=== PATIENT | male | born 1980 | race American Indian/Alaskan Native ===

== ENCOUNTER 2017-09-16 18:21 | Emergency (ER) | payer SELFPAY ==
[2017-09-16 18:42] VITALS: BP 116/80
--- NOTE | 2017-09-16 21:23 | Emergency Department Report ---
ED Eye Problem HPI - General Chief complaint: Eye Problems Stated complaint: LEFT EYE PAIN Time Seen by Provider: 09/16/17 21:21 Source: patient Mode of arrival: Ambulatory Limitations: No Limitations - History of Present Illness Initial comments: This is a 36-year-old male nontoxic, well nourished in appearance, no acute signs of distress presents to the ED with c/o of left eye pain. Patient stated that this morning around 5 AM he hit his eye with his left thumb. Patient denied decreased vision, fever, chills, headache, stiff neck, nausea, vomiting, chest pain or shortness of breath. Patient denies any eye crusting. Denies any allergies or significant past medical history. chief complaint: eye pain -: This morning Onset Description: sudden Location: left eye Place: home If Injury: none Eye Symptoms: burning, redness, pain Severity: mild Severity scale (0 -10): 8 If Pain, Quality: burning, aching Consistency: constant Associated Symptoms: none. denies: headache, neck pain, nausea/vomiting, cough , rhinorrhea, fever, shortness of breath Treatments Prior to Arrival: none - Related Data Previous Rx's Medication Instructions Recorded Last Taken Type traMADol [Ultram] 50 mg PO Q4HR PRN #15 tablet 08/15/13 Unknown Rx Ciprofloxacin 0.3% (Nf) 2 drops OS TID #1 drops 09/16/17 Unknown Rx [Ciprofloxacin OPTH] Cyclopentolate HCl [Cyclogyl 1%] 1 drop OP BID #1 drops 09/16/17 Unknown Rx Allergies Allergy/AdvReac Type Severity Reaction Status Date / Time No Known Allergies Allergy Verified 08/15/13 06:30 ED Review of Systems ROS: Stated complaint: LEFT EYE PAIN Other details as noted in HPI Constitutional: denies: chills, fever Eyes: eye pain. denies: eye discharge, vision change ENT: denies: ear pain, throat pain Respiratory: denies: cough, shortness of breath, wheezing Cardiovascular: denies: chest pain, palpitations Endocrine: no symptoms reported Gastrointestinal: denies: abdominal pain, nausea, diarrhea Genitourinary: denies: urgency, dysuria Musculoskeletal: denies: back pain, joint swelling, arthralgia Skin: denies: rash, lesions Neurological: denies: headache, weakness, paresthesias Psychiatric: denies: anxiety, depression Hematological/Lymphatic: denies: easy bleeding, easy bruising ED Past Medical Hx - Past Medical History Previous Medical History?: No - Surgical History Past Surgical History?: No - Social History Smoking Status: Never Smoker Substance Use Type: None - Medications Home Medications: Home Medications Medication Instructions Recorded Confirmed Last Taken Type traMADol [Ultram] 50 mg PO Q4HR PRN #15 tablet 08/15/13 Unknown Rx Ciprofloxacin 0.3% (Nf) 2 drops OS TID #1 drops 09/16/17 Unknown Rx [Ciprofloxacin OPTH] Cyclopentolate HCl [Cyclogyl 1%] 1 drop OP BID #1 drops 09/16/17 Unknown Rx ED Physical Exam - General Limitations: No Limitations General appearance: alert, in no apparent distress - Head Head exam: Present: atraumatic, normocephalic - Eye Eye exam: Present: normal appearance, PERRL, EOMI. Absent: scleral icterus, conjunctival injection, nystagmus, periorbital swelling, periorbital tenderness Pupils: Present: normal accommodation - Expanded Eye Exam Expanded Eyelids: Normal Inspection: Left Pupils: Regular, Round: Left, Reactive: Left Sclera/Conjunctival: Normal Inspection: Left Anterior chamber: Normal Inspection: Left Visual acuity (R) = 20/: 70 Visual acuity (L) = 20/: 50 With correction: No IOP (L) in mmH IOP measured with: Tonopen - ENT ENT exam: Present: normal exam, normal orophraynx, mucous membranes moist - Neck Neck exam: Present: normal inspection, full ROM - Respiratory Respiratory exam: Present: normal lung sounds bilaterally. Absent: respiratory distress, wheezes, rales, rhonchi, stridor - Cardiovascular Cardiovascular Exam: Present: regular rate, normal rhythm. Absent: systolic murmur, diastolic murmur, rubs, gallop - GI/Abdominal GI/Abdominal exam: Present: soft, normal bowel sounds - Rectal Rectal exam: Present: deferred - Extremities Exam Extremities exam: Present: normal inspection - Back Exam Back exam: Present: normal inspection - Neurological Exam Neurological exam: Present: alert, oriented X3, CN II-XII intact, normal gait - Psychiatric Psychiatric exam: Present: normal affect, normal mood - Skin Skin exam: Present: warm, dry, intact, normal color. Absent: rash - Other Other exam information: Under Maciel lamp, I used fluorescein and tetracaine to examine cornea for corneal abrasion or foreign body. There is positive corneal abrasion about 0.5 cm. No foreign body noted. ED Course Vital Signs 09/16/17 18:38 Temperature 98.6 F Pulse Rate 70 Respiratory 18 Rate Blood Pressure 116/80 O2 Sat by Pulse 98 Oximetry - Reevaluation(s) Reevaluation #1: 09/16/17 21:48 Patient is speaking in full sentences with no signs of distress noted. Critical care attestation.: If time is entered above; I have spent that time in minutes in the direct care of this critically ill patient, excluding procedure time. ED Disposition Clinical Impression: Corneal abrasion Qualifiers: Encounter type: initial encounter Laterality: left Qualified Code(s): S05.02XA - Injury of conjunctiva and corneal abrasion without foreign body, left eye, initial encounter Disposition: - TO HOME OR SELFCARE Is pt being admited?: No Does the pt Need Aspirin: No Condition: Stable Instructions: Corneal Abrasion (ED) Additional Instructions: Follow-up with a targeteer doctor in 3-5 days or if symptoms worsen and continue return to emergency room as soon as possible. Prescriptions: Ciprofloxacin 0.3% (Nf) [Ciprofloxacin OPTH] 2 drops OS TID #1 drops Cyclopentolate HCl [Cyclogyl 1%] 1 drop OP BID #1 drops Referrals: PRIMARY CARE, [Referring] - 3-5 Days PHILLY JO MD [Staff Physician] - 3-5 Days [facility] [Outside] - 3-5 Days [facility] [Outside] - 3-5 Days Forms: Work/School Release Form(ED)
[2017-09-16] MEDS ORDERED: FUL-GLO OP ONE (21:30)
[2017-09-16] MEDS ORDERED: TETRACAINE 0.5% OU PRN (21:30)
== END 2017-09-16 21:58 | disposition home or self-care (01) ==
LOC: ED 18:21
DX: S05.02XA Injury of conjunctiva and corneal abrasion without foreign body, left eye, initial encounter (principal); W51.XXXA Accidental striking against or bumped into by another person, initial encounter; Y93.89 Activity, other specified; Y92.89 Other specified places as the place of occurrence of the external cause; Y99.8 Other external cause status
CPT/HCPCS: 99283

== ENCOUNTER 2019-07-25 08:49 | Emergency (ER) | payer SELFPAY ==
--- NOTE | 2019-07-25 09:51 | XRay Report ---
Right hand 4 views INDICATION / CLINICAL INFORMATION: swelling, and limited ROM. COMPARISON: None available. FINDINGS: Old, healed fracture of the distal fifth metacarpal. There is also a healing fracture of the proximal fifth metacarpal, with considerable callus formation . I do not see a definite acute fracture. Signer Name: Sanchez Ladd MD Signed: 07/25/2019 9:47 AM Workstation Name: [id number]
[2019-07-25] MEDS ORDERED: IBUPROFEN 600 MG TAB PO ONE (10:13)
--- NOTE | 2019-07-25 10:13 | Emergency Department Report ---
Upper Extremity - [facility] Chief Complaint: Extremity Injury, Upper Stated Complaint: RT HAND POSS BROKEN/PAIN Time Seen by Provider: 07/25/19 10:02 Upper Extremity: Right Hand Occurred When: Today Mechanism: Hit with Object Symptoms: Yes Pain with Movement, Yes Deformity, No Limited Range of Movement Other History: 38-year-old -Maldivian male presents to the emergency room stating that he punched a wall and has swelling to his right hand. Patient reports this happened last night. Patient reports he is unable to make a fist. Patient also reports that he had fractured his same hand in April and has not truly followed up with an orthopedic provider. Patient is taken nothing for pain. Patient has no other past medical history and takes no medications on a daily basis. ED Review of Systems ROS: Stated complaint: RT HAND POSS BROKEN/PAIN Other details as noted in HPI ED Past Medical Hx - Past Medical History Previous Medical History?: No - Surgical History Past Surgical History?: No - Social History Smoking Status: Never Smoker - Medications Home Medications: Home Medications Medication Instructions Recorded Confirmed Last Taken Type traMADoL [Ultram] 50 mg PO Q4HR PRN #15 tablet 08/15/13 Unknown Rx Ciprofloxacin 0.3% (Nf) 2 drops OS TID #1 drops 09/16/17 Unknown Rx [Ciprofloxacin OPTH] Cyclopentolate HCl [Cyclogyl 1%] 1 drop OP BID #1 drops 09/16/17 Unknown Rx Ibuprofen [Motrin 600 MG tab] 600 mg PO Q8H PRN #30 tablet 07/25/19 Unknown Rx Upper Extremity Exam - Exam General: Vital signs noted. No distress. Alert and acting appropriately. Head and Torso: No HEENT Abnormality, No Neck Tenderness, No Chest/Lungs Abnormality, No Abdominal Tenderness, No Back Tenderness Shoulder Exam: Yes Normal Range of Motion in Shoulder, No Shoulder Tenderness, No Clavicle Tenderness, No Shoulder Deformity, No AC Joint Tenderness Arm Exam: No Arm/Humerus Tenderness, No Arm Deformity Forearm: No Forearm Tenderness, No Forearm Deformity, No Pain with Pronation, No Pain with Supination Wrist: Yes Normal ROM in Wrist, No Wrist Deformity Hand: Yes Hand Tenderness, Yes Hand Deformity, Yes Digit Tenderness CMS Exam: No Broken Skin, No Normal Distal Pulses, No Normal Capillary Refill, No Normal Distal Sensation ED Medical Decision Making - Medical Decision Making 38-year-old -Maldivian male presents to the emergency room stating that he punched a wall and has swelling to his right hand. Patient reports this happened last night. Patient reports he is unable to make a fist. Patient also reports that he had fractured his same hand in April and has not truly followed up with an orthopedic provider. Patient is taken nothing for pain. Patient has no other past medical history and takes no medications on a daily basis. X-ray of right hand shows a healing fracture of the fifth meta carpal. Patient will be given 600 mg of ibuprofen for pain management. Patient will be also referred to orthopedic. Patient be placed in a boxer's splint with Velcro. Critical care attestation.: If time is entered above; I have spent that time in minutes in the direct care of this critically ill patient, excluding procedure time. ED Disposition Clinical Impression: Boxer's metacarpal fracture, neck, closed Disposition: [id number] TO HOME OR SELFCARE Is pt being admited?: No Does the pt Need Aspirin: No Condition: Stable Instructions: Boxer Fracture (ED) Additional Instructions: Take pain medication as prescribed. Please do not hit any more objects. Follow-up with orthopedic provider. Prescriptions: Ibuprofen [Motrin 600 MG tab] 600 mg PO Q8H PRN #30 tablet PRN Reason: Pain Referrals: PRIMARY CAREMD [Primary Care Provider] - 3-5 Days SERVANDO WHITEHEAD MD [Staff Physician] - 3-5 Days
[2019-07-25 10:15] VITALS: BP 112/75
== END 2019-07-25 10:42 | disposition home or self-care (01) ==
LOC: ED 08:49
DX: S62.396A Other fracture of fifth metacarpal bone, right hand, initial encounter for closed fracture (principal); Z79.899 Other long term (current) drug therapy; X58.XXXD Exposure to other specified factors, subsequent encounter